=== PATIENT | male | born 1995 | race Caucasian/White ===

== ENCOUNTER 2023-10-15 15:06 | Emergency (ER) | payer SELFPAY ==
[~2023-10-15] VITALS: Ht 188 cm; Wt 89.4 kg
[2023-10-15 15:13] VITALS: BP 136/89; PULSE 58; RESP 16; TEMP 98.8; O2SAT 99
== END 2023-10-15 18:22 | disposition left against medical advice (07) ==
LOC: ER 15:07
DX: F41.1 Generalized anxiety disorder (principal); Z53.21 Procedure and treatment not carried out due to patient leaving prior to being seen by health care provider
CPT/HCPCS: 99281